=== PATIENT | male | born 1945 | race Caucasian/White ===

== ENCOUNTER 2025-03-03 09:20 | Day surgery (SDC) | payer OTHER ==
[2025-03-03 09:25] LABS: Absolute Lymphocytes (CBC) 1.8 K/uL (0.7-4.9); Hematocrit 35.1 % (39.6-49.0); Hemoglobin 10.8 g/dL (13.6-17.9); MCH 22.2 pg (27.0-35.0); MCHC 30.9 g/dL (32.0-36.0); MCV 71.7 fL (80-100); MPV 6.5 fL (7.6-11.3); Nucleated RBC Absolute Count 0.0 (0-0); Nucleated Red Blood Cells % 0.1 % (0-0); RBC Red Blood Cell Count 4.89 M/uL (4.33-5.43); White Blood Count 8.90 thou/uL (4.3-10.9)
--- NOTE | 2025-03-03 09:28 | RAD REPORT ---
EXAM: Chest Pa And Lat (2 Views) HISTORY: 79 years Male pre procedure COMPARISON: No prior exams FINDINGS: LUNGS/PLEURA: The lungs are clear. No pleural effusions or pneumothorax. No pulmonary edema. CARDIAC/MEDIASTINUM: The cardiac silhouette is within normal limits. UPPER ABDOMEN: No significant abnormality. BONES: No acute abnormality. LINES/TUBES/OTHER: N/A IMPRESSION: No evidence of acute cardiopulmonary disease.
[2025-03-03 09:32] LABS: Anion Gap 8.5 mEq/L (5.0-15.0); BUN Blood Urea Nitrogen 24.0 mg/dL (7-18); Glucose Level 126.0 mg/dL (74-106); Potassium 4.5 mEq/L (3.5-5.1)
[2025-03-03] MEDS: Ringers Lactate 1,000 ML IV ONE (10:30)
[2025-03-03] MEDS ORDERED: FENTANYL CITR 100 MCG/2 ML ONE (13:03)
[2025-03-03] MEDS ORDERED: LIDOCAINE 2% MPF 5 ML VIAL ONE (13:03)
[2025-03-03] MEDS ORDERED: ONDANSETRON 4 MG/2 ML VIAL ONE (13:03)
[2025-03-03] MEDS: CEFAZOLIN SODIUM 1 GM/VIAL ONE (13:18)
--- NOTE | 2025-03-03 14:18 | P.BOP ---
Preoperative diagnosis: infected back subQ mass with cellulitis/abscess Postoperative diagnosis: same Primary procedure: Excisional biopsy infected back subQ mass with cellulitis/abscess [id number] Estimated blood loss: <10cc Specimen: mass Findings: mass with abscess Anesthesia: General Complications: None Transferred to: Recovery Room Condition: Good
[2025-03-03 16:10] VITALS: BP 150/70; TEMP 97.5; O2SAT 100
--- NOTE | 2025-03-03 23:20 | OP ---
Date of Procedure: 03/03/2025 Surgeon: Syed Arnold MD Preoperative Diagnosis: Infected back subcutaneous mass with cellulitis and abscess. Postoperative Diagnosis: Infected back subcutaneous mass with cellulitis and abscess. Procedure Performed: Excisional biopsy of infected back subcutaneous mass, 5 x 5 x 2 cm. Estimated Blood Loss: Less than 10 cc. Specimen: Mass. Findings: Mass with abscess. Anesthesia: General plus local. Indications: This is the case of an 79-year-old person with infected back mass, cellulitis, draining pus. Benefits, alternatives, and risks of excision fully explained, which include, but not limited to infection, bleeding, damage to adjacent structures, anesthesia complication, recurrence, NH, and e nitin . He also understands this may not relieve symptoms. He might need more than one surgical intervention. He also understands this will require wound care. He signed a consent patient. Area of concern was marked by me and the patient in the holding room. Description Of Procedure: The patient was brought to the operating room, placed in supine position. Anesthesia was induced without complication. The patient was placed in lateral decubitus position w ith proper protection. Back area was prepped and draped in usual sterile fashion. Local anesthesia was applied followed by a sharp incision of the skin. We noticed there was a cavity present. That c avity was cultured. The mass was completely excised. The area was irrigated. Hemostasis obtained a nd then the area was covered with an iodoform quarter of an inch and sterile dressings on top. This goes all the way down to fascia of the muscle, but does not penetrate the muscle. The patient tolera josé the procedure well. Local anesthesia was applied. No bleeding. The patient was sent on his way to recovery in stable condition. KAI/ANAID Voice ID: [id number] Report ID: [id number]
--- NOTE | 2025-03-03 23:25 | DS ---
Date of Discharge: 03/03/2025 Diagnosis: Infected back subcutaneous mass with cellulitis and abscess. Procedure: Excisional biopsy of infected back subcutaneous mass with abscess drainage. The area is about 5 x 5 x 2 cm. Condition: Stable. Disposition: Home. Activity: As tolerated. No heavy lifting. Discharge Instructions: Follow up in my office in 1 week. Call for appointment [phone]. We are go ing to be using wet-to-dry dressing in the next 48 hours. The patient goes to an assisted care. We would like to see the [facility]. Call for appointment at to verify the time. PERLITA Voice ID: [id number] Report ID: [id number]
== END 2025-03-03 15:59 | disposition home or self-care (01) ==
LOC: PRE 09:20
PROVIDERS: ATTEND Surgery
PROC: 0JB70ZZ Excision of Back Subcutaneous Tissue and Fascia, Open Approach (ICD-10-PCS; principal; 2025-03-03 13:45)
DX: L72.0 Epidermal cyst (principal); L08.9 Local infection of the skin and subcutaneous tissue, unspecified
CPT/HCPCS: 11406; 93005; 87070; 85025; 80048; 36415; 87205; 88304; 87075; 71046; J2704; J2003; J3010; J2405; J7120; J0690